=== PATIENT | female | born 1980 | race Caucasian/White ===

== ENCOUNTER 2017-04-19 09:16 | Outpatient (CLI) | payer OTHER | END 2017-04-19 09:29 | disposition home or self-care (01) | LOC: TOM 09:16 | DX: R51 Headache (principal); J32.4 Chronic pansinusitis ==

== ENCOUNTER → 2017-04-19 10:19 | Outpatient (CLI) | payer OTHER | END | disposition home or self-care (01) | LOC: LAB 10:19 | DX: E89.0 Postprocedural hypothyroidism (principal); E03.8 Other specified hypothyroidism ==

== ENCOUNTER → 2017-07-11 | Outpatient (CLI) | payer OTHER ==
[~2017-07-11] VITALS: Ht 152.4 cm; Wt 59.0 kg
== END | disposition home or self-care (01) ==
LOC: PPHC 09:57
DX: N61.0 Mastitis without abscess (principal)

== ENCOUNTER 2018-04-15 11:07 | Outpatient (CLI) | payer OTHER | END 2018-04-15 11:25 | disposition home or self-care (01) | LOC: LAB 11:07 | DX: J30.2 Other seasonal allergic rhinitis (principal); J30.89 Other allergic rhinitis; R06.09 Other forms of dyspnea; R06.02 Shortness of breath ==

== ENCOUNTER 2019-04-17 08:35 | Outpatient (CLI) | payer OTHER | END 2019-04-17 08:52 | disposition home or self-care (01) | LOC: LAB 08:35 | DX: J11.1 Influenza due to unidentified influenza virus with other respiratory manifestations (principal) ==